=== PATIENT | female | born 1950 | race Caucasian/White ===

== ENCOUNTER → 2021-07-14 | Outpatient (CLI) | payer MEDICARE, OTHER ==
[~2021-07-14] MED LIST: ABATACEPT IVPB NR; MALTOSE IVPB NR; SODIUM CHLORIDE 0.9% 500 ML 500 ML in EMPTY BAG 1 BAG IV PRN; SODIUM CHLORIDE 0.9% IVPB NR
[2021-07-14 10:36] VITALS: BP 149/85; PULSE 76; RESP 16; TEMP 98.3
== END ==
LOC: PROCWHC3 10:10
DX: L40.50 Arthropathic psoriasis, unspecified (principal); I10 Essential (primary) hypertension; M19.90 Unspecified osteoarthritis, unspecified site; E78.00 Pure hypercholesterolemia, unspecified; J45.909 Unspecified asthma, uncomplicated; Z79.899 Other long term (current) drug therapy; Z88.5 Allergy status to narcotic agent; Z88.1 Allergy status to other antibiotic agents; Z88.6 Allergy status to analgesic agent
CPT/HCPCS: 96365; J0129

== ENCOUNTER → 2022-07-12 | Outpatient (CLI) | payer MEDICARE, OTHER ==
[2022-07-12 13:46] VITALS: BP 132/93; PULSE 102; RESP 16; TEMP 97.9
== END ==
LOC: PROCWHC3 13:08
PROVIDERS: ATTEND Internal Medicine Rheumatology
DX: L40.50 Arthropathic psoriasis, unspecified (principal)
CPT/HCPCS: 96365; J0129

== ENCOUNTER → 2023-07-05 | Outpatient (CLI) | payer MEDICARE, OTHER ==
[2023-07-05] MEDS: SODIUM CHLORIDE 0.9% 500 ML 500 ML in EMPTY BAG 1 BAG IV PRN (13:42)
[2023-07-05 14:01] VITALS: BP 158/85; PULSE 69; RESP 16; TEMP 98.2
[2023-07-05] MEDS: MALTOSE IVPB NR (14:01)
[2023-07-05] MEDS: ABATACEPT IVPB NR (14:01)
[2023-07-05] MEDS: SODIUM CHLORIDE 0.9% IVPB NR (14:01)
== END ==
LOC: PROCWHC3 13:28
PROVIDERS: ATTEND Internal Medicine Rheumatology
DX: L40.50 Arthropathic psoriasis, unspecified (principal)
CPT/HCPCS: 96365; J0129